=== PATIENT | female | born 2005 | race African-American/Black ===

== ENCOUNTER 2023-09-08 02:12 | Inpatient (IN) | payer OTHER, SELFPAY ==
[2023-09-07 18:54] VITALS: BP 168/90
[2023-09-07 19:29] VITALS: BMI 33.5
[2023-09-07 19:43] VITALS: BP 118/70
[2023-09-07 19:50] LABS: % Basophils 0.4 % (0-2); % Eosinophils 0.6 % (0-6); % Immature Granulocytes 0.3 % (0-0.5); % Lymphocytes 19.5 % (20.5-51.1); % Monocytes 7.8 % (1.7-9.3); % Neutrophils 71.4 % (42.2-75.2); Absolute Basophils 0.1 10^3/uL (0-0.2); Absolute Eosinophils 0.1 10^3/uL (0-0.7); Absolute Lymphocytes 2.3 10^3/uL (1.2-3.4); Absolute Monocytes 0.9 10^3/uL (0.1-0.6); Absolute Neutrophils 8.5 10^3/uL (1.4-6.5); Hematocrit 26.2 % (37.0-47.0); Hemoglobin 8.6 g/dL (12.0-16.0); Mean Corp Hgb Conc. 32.8 g/dL (33.0-37.0); Mean Corpuscular Hgb 25.5 pg (27.0-31.0); Mean Corpuscular Volume 77.7 fL (81.0-99.0); Mean Platelet Volume 10.2 fL (7.4-10.4); Nucleated Red Blood Cells % 0.2 %; Platelet Count 341 10^3/uL (130-400); Red Blood Cell Count 3.37 10^6/uL (4.20-5.40); White Blood Cell Count 11.9 10^3/uL (4.8-10.8)
[2023-09-07 19:52] LABS: Urine Albumin Trace (Neg - Trace); Urine Bilirubin Negative (Negative); Urine Character Slightly Cloudy (Clear); Urine Color Yellow; Urine Glucose Negative (Negative); Urine Ketone 3+ (Negative); Urine Leukocyte 2+ (Negative); Urine Nitrite Positive (Negative); Urine Occult Blood 4+ (Negative); Urine Urobilinogen 1+ (Neg - 1+); Urine pH 6.5 (5.0-9.0)
[2023-09-07 20:02] LABS: ALT (SGPT) 12 U/L (0-35); AST (SGOT) 18 U/L (14-36); Albumin 4.1 g/dl (3.5-5.0); Alkaline Phosphatase 103 U/L (38-126); Blood Urea Nitrogen 7 mg/dl (7-17); Calcium 9.5 mg/dl (8.4-10.2); Carbon Dioxide 21 mmol/L (22-30); Chloride 106 mmol/L (98-107); Estimated Creatinine Clearance > 125 ml/min; Glucose 84 mg/dl (70-99); Potassium 3.4 mmol/L (3.5-5.1); Sodium 134 mmol/L (135-145); Total Bilirubin 0.4 mg/dl (0.2-1.3); Total Protein 7.1 g/dl (6.3-8.2); eGFR > 60.00
[2023-09-07 20:05] LABS: Urine Amorphous Seen; Urine Bacteria Moderate (Negative); Urine White Cell >100 /HPF (0-5)
[2023-09-07 20:26] LABS: Iron 34 ug/dl (37-170)
[2023-09-07 20:36] LABS: Percent Saturation 7 % (20-50); Total Iron Binding Capacity 430 ug/dl (265-497)
[2023-09-07 20:37] VITALS: BP 109/65
[2023-09-07 21:03] LABS: Ferritin 8.2 ng/ml (6.24-137)
--- NOTE | 2023-09-07 21:14 | ED.GENMED ---
History of Present Illness
<Katie Cordoba NP - Last Filed: 09/10/23 16:43>
General
Chief Complaint: Urinary Symptoms
Source: patient
Exam Limitations: none
Time Seen by Provider: 09/07/23 19:05
Nursing documentation reviewed up to this point in time: agreed with
Travel History
Have you had any contact with someone who has COVID-19?: No
Do you have any symptoms of coronavirus? Fever > 100 degrees, chills, cough, shortness of breath, sore throat, loss of taste or smell, muscle aches, or headache?: No
History of Present Illness
History of Present Illness:
Patient to ED for eval of fever and chills. States she was evaluated at urgent care, told that she was anemic and sent to ED. Patient states that [facility] . States she was given 4 pills to take. SHe
developed heavy bleeding over the next few days. States she is still bleeding but is now light. No follow up. She also complained of UTI symptoms [facility]. They gave her an rx for macrobid which patient reports completiong. No
UA C&S performed. Still reports urinary symptoms. Brought to ED by boyfriend for eval.
Past History
<Katie Cordoba NP - Last Filed: 09/10/23 16:43>
Past History
ED Past Medical History: None
ED Past Surgical History: None and Other
Social History
Tobacco: Non-smoker
Alcohol: None
Drug: None
Review of Systems
<Katie Cordoba NP - Last Filed: 09/10/23 16:43>
Review of Systems
Allergies reviewed?: Yes
All Other Systems: ROS reviewed and negative except as documented in HPI and ROS
Constitutional: Reports no symptoms
EENT: Reports no symptoms
Respiratory: Reports no symptoms
Cardiac: Reports no symptoms
ABD/GI: Reports other (pelvic pain, low back pain)
: Reports frequency and urgency
Musculoskeletal: Reports no symptoms
Skin: Reports no symptoms
Neurological: Reports no symptoms
Psychiatric: Reports no symptoms
Phy Exam
<Katie Cordoba NP - Last Filed: 09/10/23 16:43>
General Physical Exam
General Presentation: well appearing and no apparent distress
General age: appears stated age
General Skin: warm and dry
General Habitus: normal
Cardiovascular Exam
Cardiovascular Exam: regular rate/rhythm
Pulmonary Exam
Pulmonary Exam: lungs clear and no respiratory distress
Gastrointestinal Exam
Gastrointestinal Exam: normal bowel sounds, non tender and soft
Musculoskeletal Exam
Musculoskeletal Exam: full ROM and neuro vasc intact
Skin Exam
Skin Exam: normal color, warm/dry and no rash
Psychiatric Exam
Psychiatric Exam: normal mood/affect
Course
<Katie Cordoba GAMING ASSOCIATE - Last Filed: 09/10/23 16:43>
Orders/Labs/Results
Orders:
Orders
09/07/23 19:41
Complete Blood Count/With Diff Urgent
Comprehensive Metabolic Panel Urgent
Ferritin Urgent
Comment: ADD ON
HCG, Beta Quantitative [Beta HCG Quantitative] Urgent
Is this a screen?: No
Iron Urgent
Comment: ADD ON
Total Iron Binding Urgent
Comment: ADD ON
09/07/23 19:42
Urinalysis Reflex To Culture Urgent
Date Specimen was Collected: 09/07/23
Time Specimen was Collected: 19:40
Urine Microscopic Reflex Cult Urgent
Urine Culture Urgent
CRISTY Source: U
Specimen Description:
Date Specimen was Collected: 09/07/23
Time Specimen was Collected: 19:40
09/07/23 19:54
Add On- LAB Urgent
Tests Added?: ferritin, iron, TIBC
09/07/23 20:34
US W Transvaginal Urgent
Reason For Exam: bleeding. S/p 2 weeks ago
09/07/23 23:06
0.9% Sodium Chloride 1000 ml [Nss] 1,000 ml IV BOLUS
09/07/23 23:07
Piperacillin/Tazo 3.375 Gram [Zosyn] 3.375 gram in 50 ml IV NOW
09/07/23 23:08
Vancomycin 1 Gram/200 ml [Vancocin] 1 gram in 200 ml IV NOW
09/07/23 23:09
IV Insert/Care/Rem.- Treatment PRN
09/07/23 23:31
Type+Screen Urgent
09/07/23 23:53
Blood Culture Urgent
CRISTY Source: Blood/Venous
Specimen Description:
09/07/23 23:54
Lactic Acid Urgent
09/07/23 23:55
Blood Culture Urgent
CRISTY Source: Blood/Venous
Specimen Description:
09/08/23 00:31
HYDROmorphone [Dilaudid] 0.25 mg IV PACU-Q5MPRN PRN
HYDROmorphone [Dilaudid] 0.5 mg IV PACU-Q5MPRN PRN
Meperidine [Demerol] 12.5 mg IV PACU-Q5MPRN PRN
Prochlorperazine [Compazine] 5 mg IV PACU-ONCEPRN PRN
09/08/23 00:32
Notify MD As Directed
Notify physician if: for SDS patients with known or suspected sleep obstructive sleep apnea, monitor in the
PACU.
Notify MD for any apneic/desaturation episodes
O2 Therapy [RESP] Urgent
Titrate/Wean O2 to maintain O2 sat greater than (%): 92
Special Instructions: -Provide supplemental oxygen to achieve O2 sat of 92% or greater.
-After 15 min, may wean O2 and discontinue if patient is able to maintain O2 sat of 92%
or greater during recovery period.
If patient is a discharge home, without oxygen therapy, notify anestheiologist if
unable to maintain O2 SAT of 92% or greater on room air for MD clearance.
09/08/23 00:43
Chlamydia/GC by PCR Urgent
CRISTY Source: Endo-Cervical
Specimen Description:
Source:: ENDOCERVICAL
Date Specimen was Collected: 09/08/23
Time Specimen was Collected: 00:37
Trichomonas - Wet Prep Urgent
CRISTY Source: Vagina
Specimen Description:
Date Specimen was Collected: 09/08/23
Time Specimen was Collected: 00:37
09/08/23 00:45
Normosol (Mult Electrolytes) [Normosol-R] 1,000 ml IV PER PROTOCOL
09/08/23 00:56
Fentanyl Citrate/Pf [Sublimaze] 100 mcg .ROUTE .STK-MED ONE
Midazolam HCl [Versed] 2 mg .ROUTE .STK-MED ONE
Ondansetron Injectable [Zofran] 4 mg .ROUTE .STK-MED ONE
Propofol [Diprivan] 20 ml .ROUTE .STK-MED
Rocuronium Aurora [Rocuronium] 50 mg .ROUTE .STK-MED ONE
09/08/23 01:00
Flush (0.9% Sodium Chloride) [Flush (Nss)] See Dose Instructions IV PER PROTOCOL
09/08/23 01:26
Admit/Transfer Patient As Directed
Co-Sign Provider:
Level of Care: Inpatient admission
Assign to:: Telemetry
Physician / Group: Rui
Diagnosis: Pyelonephritis, Retained POC
Reason for Telemetry: Arrhythmia
Date to Stop Telemetry: 09/11/23
Time to Stop Telemetry: 11:00
Reason for Hospitalization: Pyelonephritis, Retained POC
Expected length of stay greater than two midnights?: Yes
ELOS- Estimated Length of Stay in days: 3
I certify the patient meets the requirements for IP care: Yes
09/08/23 01:27
Code Status As Directed
Resuscitation Status: Full Code
09/08/23 01:32
Dexamethasone Sod Phosphate [Decadron] 20 mg .ROUTE .STK-MED ONE
Diphenhydramine [Benadryl] 50 mg .ROUTE .STK-MED ONE
Ketorolac [Toradol] 30 mg .ROUTE .STK-MED ONE
Sugammadex Sodium [Bridion] 200 mg .ROUTE .STK-MED ONE
09/08/23 01:47
Acetaminophen 1000MG/100Ml [Ofirmev] 1,000 mg in 100 ml .ROUTE .STK-MED
09/08/23 01:59
OR Pathology Routine
Clinical History: bleeding
Pre-Operative Diagnosis: bleeding
Post-Operative Diagnosis: bleeding
Operative Procedure: dilation and evacation
Surgeon: talha
Circulating Nurse: chas
Specimen Type: products of conception
09/08/23 02:15
Acetaminophen [Tylenol] 650 mg PO Q4HPRN PRN
HYDROmorphone [Dilaudid] 0.5 mg IV Q4HPRN PRN
Ketorolac [Toradol] 15 mg IV Q6HPRN PRN
Lactated Ringers [Lr] 1,000 ml IV 125 mls/hr
Prochlorperazine [Compazine] 5 mg IV Q6HPRN PRN
09/08/23 02:15
Echo 2D MMode Doppler [Echo 2D MMode Color/Doppler] Routine
Reason for Study: Murmur
MARKETING ASSISTANT RETAIL DIVISION CONSULT Routine
Consulting Provider: Yarelis Cannon
Was physician already notified: Yes
Reason for consult: Retained POC
Activity As Directed
Activity Level: Ambulate
Bladder Scan As Directed
Follow Bladder Retention/Intermittent Cath Algorithm?: Yes
PRN if no void in __ hours: 6
Frequency: Per Retention Algorithm
If Bladder Scan Result >: 400
then:: Straight cath
I/O [Intake/ Output] As Directed
Frequency: Per unit guidelines
Orthostatic Vital Signs As Directed
Orthostatic VS Frequency: BID
Pneumatic Compression Sleeves As Directed
Type: Knee high
Straight Cath As Directed
Frequency: Per Retention Algorithm
Additional Instructions: straight cath as needed per acute urinary retention algorithm for 24 hrs
Additional Instructions: for bladder scan greater than 400 mL
Vital Signs As Directed
Frequency: Per unit guidelines
Oxygen Therapy [O2 Therapy] [RESP] Routine
Titrate/Wean O2 to maintain O2 sat greater than (%): 94
DX Deep Vein Thrombosis Video Routine
09/08/23 06:00
Piperacillin/Tazo 3.375 Gram [Zosyn] 3.375 gram in 50 ml IV Q6H
09/08/23 06:57
Basic Metabolic Panel IN AM
Complete Blood Count/No Diff IN AM
Ferritin Routine
Total Iron Binding Routine
09/08/23 08:02
US Renal With Bladder IN AM
Comment:
Reason For Exam: UTI / Pyelo
09/09/23 Breakfast
Regular
At Your Request: Full Participation
09/11/23 11:00
DC Protocol for Telemetry ONCE
Abnormal Lab Results
09/07/23 09/07/23
19:41 19:42
WBC 11.9 H 10^3/uL
(4.8-10.8)
RBC 3.37 L 10^6/uL
(4.20-5.40)
Hgb 8.6 L g/dL
(12.0-16.0)
Hct 26.2 L %
(37.0-47.0)
MCV 77.7 L fL
(81.0-99.0)
MCH 25.5 L pg
(27.0-31.0)
MCHC 32.8 L g/dL
(33.0-37.0)
Absolute Neuts (auto) 8.5 H 10^3/uL
(1.4-6.5)
Absolute Monos (auto) 0.9 H 10^3/uL
(0.1-0.6)
Lymphocytes % 19.5 L %
(20.5-51.1)
Sodium 134 L mmol/L
(135-145)
Potassium 3.4 L mmol/L
(3.5-5.1)
Carbon Dioxide 21 L mmol/L
(22-30)
Iron 34 L ug/dl
(37-170)
% Saturation 7 L %
(20-50)
Urine Ketones 3+ A
(Negative)
Ur Occult Blood Reflex 4+ A
(Negative)
Urine Nitrite (Reflex) Positive A
(Negative)
Leukocyte Esterase Rfl 2+ A
(Negative)
Urine RBC 11-15 A /HPF
(0-2)
Urine WBC (Reflex) >100 A /HPF
(0-5)
Urine Bacteria (Reflex) Moderate A
(Negative)
09/07/23 19:41
09/07/23 19:41
Vital Signs
Initial and Last Documented VS:
Initial Vital Signs
Temp Pulse Resp BP Pulse Ox
99.1 F 126 22 168/90 100
09/07/23 18:54 09/07/23 18:54 09/07/23 18:54 09/07/23 18:54 09/07/23 18:54
Last Documented Vital Signs
Temp Pulse Resp BP Pulse Ox
98.0 F 93 17 106/63 99
09/10/23 11:10 09/10/23 11:10 09/10/23 11:10 09/10/23 11:10 09/10/23 11:10
<WILLIE Joe - Last Filed: 09/08/23 00:30>
Orders/Labs/Results
Orders:
Orders
09/07/23 19:41
Complete Blood Count/With Diff Urgent
Comprehensive Metabolic Panel Urgent
Ferritin Urgent
Comment: ADD ON
HCG, Beta Quantitative [Beta HCG Quantitative] Urgent
Is this a screen?: No
Iron Urgent
Comment: ADD ON
Total Iron Binding Urgent
Comment: ADD ON
09/07/23 19:42
Urinalysis Reflex To Culture Urgent
Date Specimen was Collected: 09/07/23
Time Specimen was Collected: 19:40
Urine Microscopic Reflex Cult Urgent
Urine Culture Urgent
CRISTY Source: U
Specimen Description:
Date Specimen was Collected: 09/07/23
Time Specimen was Collected: 19:40
09/07/23 19:54
Add On- LAB Urgent
Tests Added?: ferritin, iron, TIBC
09/07/23 20:34
US W Transvaginal Urgent
Reason For Exam: bleeding. S/p 2 weeks ago
09/07/23 23:06
0.9% Sodium Chloride 1000 ml [Nss] 1,000 ml IV BOLUS
09/07/23 23:07
Piperacillin/Tazo 3.375 Gram [Zosyn] 3.375 gram in 50 ml IV NOW
09/07/23 23:08
Vancomycin 1 Gram/200 ml [Vancocin] 1 gram in 200 ml IV NOW
09/07/23 23:09
IV Insert/Care/Rem.- Treatment PRN
09/07/23 23:31
Type+Screen Urgent
09/07/23 23:53
Blood Culture Urgent
CRISTY Source: Blood/Venous
Specimen Description:
09/07/23 23:54
Lactic Acid Urgent
09/07/23 23:55
Blood Culture Urgent
CRISTY Source: Blood/Venous
Specimen Description:
09/08/23 00:31
HYDROmorphone [Dilaudid] 0.25 mg IV PACU-Q5MPRN PRN
HYDROmorphone [Dilaudid] 0.5 mg IV PACU-Q5MPRN PRN
Meperidine [Demerol] 12.5 mg IV PACU-Q5MPRN PRN
Prochlorperazine [Compazine] 5 mg IV PACU-ONCEPRN PRN
09/08/23 00:32
Notify MD As Directed
Notify physician if: for SDS patients with known or suspected sleep obstructive sleep apnea, monitor in the
PACU.
Notify MD for any apneic/desaturation episodes
O2 Therapy [RESP] Urgent
Titrate/Wean O2 to maintain O2 sat greater than (%): 92
Special Instructions: -Provide supplemental oxygen to achieve O2 sat of 92% or greater.
-After 15 min, may wean O2 and discontinue if patient is able to maintain O2 sat of 92%
or greater during recovery period.
If patient is a discharge home, without oxygen therapy, notify anestheiologist if
unable to maintain O2 SAT of 92% or greater on room air for MD clearance.
09/08/23 00:43
Chlamydia/GC by PCR Urgent
CRISTY Source: Endo-Cervical
Specimen Description:
Source:: ENDOCERVICAL
Date Specimen was Collected: 09/08/23
Time Specimen was Collected: 00:37
Trichomonas - Wet Prep Urgent
CRISTY Source: Vagina
Specimen Description:
Date Specimen was Collected: 09/08/23
Time Specimen was Collected: 00:37
09/08/23 00:45
Normosol (Mult Electrolytes) [Normosol-R] 1,000 ml IV PER PROTOCOL
09/08/23 00:56
Fentanyl Citrate/Pf [Sublimaze] 100 mcg .ROUTE .STK-MED ONE
Midazolam HCl [Versed] 2 mg .ROUTE .STK-MED ONE
Ondansetron Injectable [Zofran] 4 mg .ROUTE .STK-MED ONE
Propofol [Diprivan] 20 ml .ROUTE .STK-MED
Rocuronium Aurora [Rocuronium] 50 mg .ROUTE .STK-MED ONE
09/08/23 01:00
Flush (0.9% Sodium Chloride) [Flush (Nss)] See Dose Instructions IV PER PROTOCOL
09/08/23 01:26
Admit/Transfer Patient As Directed
Co-Sign Provider:
Level of Care: Inpatient admission
Assign to:: Telemetry
Physician / Group: Rui
Diagnosis: Pyelonephritis, Retained POC
Reason for Telemetry: Arrhythmia
Date to Stop Telemetry: 09/11/23
Time to Stop Telemetry: 11:00
Reason for Hospitalization: Pyelonephritis, Retained POC
Expected length of stay greater than two midnights?: Yes
ELOS- Estimated Length of Stay in days: 3
I certify the patient meets the requirements for IP care: Yes
09/08/23 01:27
Code Status As Directed
Resuscitation Status: Full Code
09/08/23 01:32
Dexamethasone Sod Phosphate [Decadron] 20 mg .ROUTE .STK-MED ONE
Diphenhydramine [Benadryl] 50 mg .ROUTE .STK-MED ONE
Ketorolac [Toradol] 30 mg .ROUTE .STK-MED ONE
Sugammadex Sodium [Bridion] 200 mg .ROUTE .STK-MED ONE
09/08/23 01:47
Acetaminophen 1000MG/100Ml [Ofirmev] 1,000 mg in 100 ml .ROUTE .STK-MED
09/08/23 01:59
OR Pathology Routine
Clinical History: bleeding
Pre-Operative Diagnosis: bleeding
Post-Operative Diagnosis: bleeding
Operative Procedure: dilation and evacation
Surgeon: talha
Circulating Nurse: chas
Specimen Type: products of conception
09/08/23 02:15
Acetaminophen [Tylenol] 650 mg PO Q4HPRN PRN
HYDROmorphone [Dilaudid] 0.5 mg IV Q4HPRN PRN
Ketorolac [Toradol] 15 mg IV Q6HPRN PRN
Lactated Ringers [Lr] 1,000 ml IV 125 mls/hr
Prochlorperazine [Compazine] 5 mg IV Q6HPRN PRN
09/08/23 02:15
Echo 2D MMode Doppler [Echo 2D MMode Color/Doppler] Routine
Reason for Study: Murmur
MARKETING ASSISTANT RETAIL DIVISION CONSULT Routine
Consulting Provider: Yarelis Cannon
Was physician already notified: Yes
Reason for consult: Retained POC
Activity As Directed
Activity Level: Ambulate
Bladder Scan As Directed
Follow Bladder Retention/Intermittent Cath Algorithm?: Yes
PRN if no void in __ hours: 6
Frequency: Per Retention Algorithm
If Bladder Scan Result >: 400
then:: Straight cath
I/O [Intake/ Output] As Directed
Frequency: Per unit guidelines
Orthostatic Vital Signs As Directed
Orthostatic VS Frequency: BID
Pneumatic Compression Sleeves As Directed
Type: Knee high
Straight Cath As Directed
Frequency: Per Retention Algorithm
Additional Instructions: straight cath as needed per acute urinary retention algorithm for 24 hrs
Additional Instructions: for bladder scan greater than 400 mL
Vital Signs As Directed
Frequency: Per unit guidelines
Oxygen Therapy [O2 Therapy] [RESP] Routine
Titrate/Wean O2 to maintain O2 sat greater than (%): 94
DX Deep Vein Thrombosis Video Routine
09/08/23 06:00
Piperacillin/Tazo 3.375 Gram [Zosyn] 3.375 gram in 50 ml IV Q6H
09/08/23 06:57
Basic Metabolic Panel IN AM
Complete Blood Count/No Diff IN AM
Ferritin Routine
Total Iron Binding Routine
09/08/23 08:02
US Renal With Bladder IN AM
Comment:
Reason For Exam: UTI / Pyelo
09/09/23 Breakfast
Regular
At Your Request: Full Participation
09/11/23 11:00
DC Protocol for Telemetry ONCE
Abnormal Lab Results
09/07/23 09/07/23
19:41 19:42
WBC 11.9 H 10^3/uL
(4.8-10.8)
RBC 3.37 L 10^6/uL
(4.20-5.40)
Hgb 8.6 L g/dL
(12.0-16.0)
Hct 26.2 L %
(37.0-47.0)
MCV 77.7 L fL
(81.0-99.0)
MCH 25.5 L pg
(27.0-31.0)
MCHC 32.8 L g/dL
(33.0-37.0)
Absolute Neuts (auto) 8.5 H 10^3/uL
(1.4-6.5)
Absolute Monos (auto) 0.9 H 10^3/uL
(0.1-0.6)
Lymphocytes % 19.5 L %
(20.5-51.1)
Sodium 134 L mmol/L
(135-145)
Potassium 3.4 L mmol/L
(3.5-5.1)
Carbon Dioxide 21 L mmol/L
(22-30)
Iron 34 L ug/dl
(37-170)
% Saturation 7 L %
(20-50)
Urine Ketones 3+ A
(Negative)
Ur Occult Blood Reflex 4+ A
(Negative)
Urine Nitrite (Reflex) Positive A
(Negative)
Leukocyte Esterase Rfl 2+ A
(Negative)
Urine RBC 11-15 A /HPF
(0-2)
Urine WBC (Reflex) >100 A /HPF
(0-5)
Urine Bacteria (Reflex) Moderate A
(Negative)
09/07/23 19:41
09/07/23 19:41
Vital Signs
Initial and Last Documented VS:
Initial Vital Signs
Temp Pulse Resp BP Pulse Ox
99.1 F 126 22 168/90 100
09/07/23 18:54 09/07/23 18:54 09/07/23 18:54 09/07/23 18:54 09/07/23 18:54
Last Documented Vital Signs
Temp Pulse Resp BP Pulse Ox
98.0 F 93 17 106/63 99
09/10/23 11:10 09/10/23 11:10 09/10/23 11:10 09/10/23 11:10 09/10/23 11:10
<WILLIE Joe - Last Filed: 09/08/23 00:30>
MDM/Problems Addressed
MDM/Problems Addressed:
Received patient in signout from Juan Alberto Cordoba NP.
Patient is awake alert no acute distress. As documented she reports she was 7 weeks August 22 and went to [facility] for medical . She reports that she had a lot of heavy bleeding after taking that medication with clots.
Since then she has had a moderate amount of bleeding consistent to her. Today however she developed urinary frequency urgency burning with urination chills and had a fever of 102.2 with back pain. She went to urgent care was sent here in the ER.
Patient's temp on arrival is 99.1. Presently patient's temp is 99.5 taken by myself. She is mildly tachycardic in the 1 teens. Her white count is 11.9. Hemoglobin is 8.6.
Her hCG is 2344.30 urine appears infected with greater than 100 white blood cells. Ultrasound shows heterogeneous hypervascular material in the endometrial canal concerning for retained proximal of conception
2308: Case reviewed with SALES ORDER ADMINISTRATOR on-call Dr. Cannon. Despite UTI symptoms with complaints of fevers of 102.2 status post she will take to OR for D&E. Patient was ordered a liter of fluids as discussed with MARKETING ASSISTANT RETAIL DIVISION Kelley and [employer] and type
and screen ordered.
Pt [address] will take to OR however pt to be adm to medicine for possible pyelo. GC cx sent w/ trich. BC x2 sent
<WILLIE Joe - Last Filed: 09/08/23 00:30>
*Critical Care Note
Total Time (30-74mins, 75-104mins- exclusive of procedures): Not Applicable
<Katie Cordoba NP - Last Filed: 09/10/23 16:43>
Update Note
Update Note:
Patient sent to ED by for fever, UTI symptoms, vaginal bleeding. SHe was treated at 08/22 for medical . States she has had vaginal bleeding since. Anemia ntoed on CBC. [id number] Pelvic US pending. Treated for UTI by at same
visit. SHe completed a course of macrobid without improvement. UA obtained tonight, confirming UTI. WIll begin antibiotics in dept. Report given to Brent Capone who will assume care of this patient. Disposition dependent on US result.
ED Attending Note
<Katie Cordoba NP - Last Filed: 09/10/23 16:43>
-
Portions of this chart may have been created with voice recognition software.� Occasional wrong word or��sound alike� substitutions may have occurred due to the inherent limitations of voice recognition software.
Discharge Plan
Departure
Patient Disposition: Admit
Date of Disposition: 09/07/23
Time of Disposition: 23:10
Admit to: Med/Surg
Admit to doctor: Rui
Presentation/result/management discussed w/ accepting MD/DO: Hospitalist
Patient with high blood pressure during this ER visit?: Yes
Condition: Fair
Covid-19: Not Applicable
Discharge Problem:
Fever, Dysuria
Interventions
Interventions:
*Risk Screen - Suicide Last Done: 09/08/23 03:19
*General Assessment Last Done: 09/07/23 19:29
*Neglect/Abuse Screening Last Done: 09/07/23 18:54
ED- Fall Risk Assessment Last Done: 09/07/23 21:00
*ED COVID-19 Vaccine History Last Done: 09/08/23 03:19
*Nursing Disposition Last Done: 09/08/23 01:00
ED-Female Genitourinary Assessment Last Done: 09/07/23 21:00
ED- Neurological Assessment Last Done: 09/07/23 21:00
ED-Skin Assessment Last Done: 09/07/23 21:00
Discharge Date and Time
Discharge Date/Time: 09/08/23 01:32
[2023-09-07] MEDS: NSS 1000 IV (23:37)
[2023-09-07] MEDS: ZOSYN 50 IV (23:38)
[2023-09-07 23:58] VITALS: BP 132/64
[2023-09-08] VITALS (15 sets, daily range): BP systolic 96–132; BP diastolic 38–73; PULSE 113–122; BMI 33.0
[2023-09-08] MEDS: VANCOCIN 200 IV (00:12)
--- NOTE | 2023-09-08 00:46 | CON.MD ---
Consultation - Medical
-
Consult dictated in full.
18 yo female has hx of elective medical termination of through [facility] on 08/22/23 at approx 7 wks . She started bleeding 4 hours after dosing and bled heavily for severaldays, now tapered off. Had UTIi sx on 08/22
and was treated with macrobid x 10 days completed approx 08/31/23 without any improvement in her symptoms. Had Temp 100.9 at home today and went to Urgent care for UTI sx. Had Temp 102 at Urgent Care and sent to Hospital. Evaluation revealed BHCG 2344
and US with thickened endometrium 14mm with heterogeneous material in endometrial canal suggesting retained POC.
ROS: + fever, + chills, no CP, No SOB, no dizziness or lightheadedness, +slight odor noted by pt with vaginal bleeding
PMH: neg
PSH: excision ectopc axillary breast tissue left
ALL: Zofran0'mild hives'
OBHx: 9 months ago, recent 7 wk termination
Famhx: DM, HTN, heart disease
Sochx: neg tob, etoh, drug use, vaping
PE: VSS T99.5
Pleasant female, no acute distress
COr: regular rate
Pulm: clear b/l
Abd: soft, ND, mild tenderness with deep palpation lower pelvis
Mild CVAT on right
SPec exam: no abnormal vaginal discharge. Small amount of blood noted at cervical os. No active bleeding, No cervical motion tenderness. Uterus normal size, slightly tender to palpation.No adnexal tenderness. No foul odor noted.
Ext: no calf pain
WBC 11.9 H/H: 8.6/26.2 plt 341
HCG 2344
Urine +2 leuks +nitrites, >100 WBCs, moderate bacteria
Assessment:
1. S/P elective termination of with retained products of conception.
2. Fever and leukocytosis, tachycardia-raises concern for septic vs pyelonephritis
3. UTI, possible pyelonephritis
4. anemia-liekly related to recent blood loss from termiantion
Plan: Admit to hospitalist service due to other medical conditions. Reviewed case with Dr. Fabian.
Broad spectrum antibiotics: Zosyn and vanco
GC/CT cultures collected,trichomonas sawb collected.
urine culture and blood cultures collected.
Recommend D&E to evacuate retained products. Reviewed rationale for procedure, risks and complications and informed consent obtained. T&S and blood consent obtained.
iron for anemia postprocedure
OR and RN Assembler M[employer] Frames aware.
[2023-09-08 01:00] LABS: Lactic Acid 0.7 mmol/L (0.7-2.0)
--- NOTE | 2023-09-08 01:34 | HPS.HSE ---
Family Physician
-
Family Physician: Sondra Navas,
Chief Complaint
-
Dysuria, Fever
History of Present Illness
Patient is a 18y F with no significant PMH who presents to ED complaining of fever and dysuria. Patient states that she started with dysuria and urinary frequency on 08/21. She was seen at [facility] on 08/22 and was prescribed Macrobid x
10 days which she has since completed. Patient states that her urinary symptoms did not improve. In addition, she took mifepristone and misoprostol for induction of .
Patient continued to have urinary symptoms and then developed back pain and today had a fever at home to 102. She initially presented to Urgent Care and was then referred to the ED for further evaluation.
Patient had US done in the ED showing retained POC. OB was consulted and patient was taken to the OR for D&E.
Medical History
Past Medical History
Past Medical History: Reports None
Past Surgical History: Reports Other
Additional Past Surgical History:
Left Axillary Breast Tissue Excision (Jun 2023)
Social History
Tobacco: Non-smoker
Alcohol: None
Drug: None
Family History
Family History: Not pertinent
Allergies / Home Medications
Allergies reflects when Allergies were last updated in [facility].
Home Medications with original date entered in [facility]
Allergy/Medication List:
Allergies
Allergy/AdvReac Type Severity Reaction Status Date / Time
ondansetron [From Zofran] Allergy Hives Verified 09/07/23 18:58
Home Medications
No Meds [No Current Medications] 09/08/23
Review of Systems
-
History Source: Patient
A 12 point ROS was completed and negative except as noted: Yes
Constitutional: Reports Fever, Fatigue and Chills
EENT: Denies Sore Throat
Respiratory: Denies Cough or Trouble Breathing
Cardiac: Denies Chest Pain or Palpitations
Abdomen/GI: Reports Abdominal Pain; Denies Nausea, Vomiting or Diarrhea
: Reports Dysuria, Frequency, Flank Pain and Other (Pelvic cramps)
Musculoskeletal: Denies Joint Pain
Neurological: Denies Dizzy or Headache
Psych: Denies Depression or Anxiety
Physical Exam
Vital Signs
Vital Signs
Temp Pulse Resp BP Pulse Ox
99.5 F 119 20 132/64 98
09/07/23 23:09 09/08/23 01:00 09/08/23 01:00 09/08/23 00:23 09/08/23 00:23
Physical Exam
General: Other (18y F in mild distress due to pain.)
HEENT: Moist mucous membranes and PERRLA
Respiratory: Clear; No Wheezes, Rales or Rhonchi
Cardiac: S1/S2, Regular Rhythm and Murmur (II/ SOCO)
GI: Soft, Non Distended, Normal Bowel Sounds and Other (Pos abdominal tenderness - primarily lower abdomen and L side.)
Genito-urinary: Other (Mild L CVAT)
Musculoskeletal: No Clubbing, No Cyanosis and No Edema
Neuro: AO x 3
Laboratory Results
-
09/07/23 19:41
09/07/23 19:41
Laboratory Results
Lactic Acid 0.7 mmol/L (0.7-2.0) 09/08/23 00:08
Total Bilirubin 0.4 mg/dl (0.2-1.3) 09/07/23 19:41
AST 18 U/L (14-36) 09/07/23 19:41
ALT 12 U/L (0-35) 09/07/23 19:41
Alkaline Phosphatase 103 U/L (38-126) 09/07/23 19:41
Impression/Plan
-
A/P: Patient is a 18y F with no significant PMH who presented to ED complaining of fever, back pain and urinary symptoms.
Pyelonephritis
- Admit for further evaluation and treatment.
- Clinical pyelo with positive UTI, flank pain and fevers.
- IV abx with Zosyn after patient failed outpatient Macrobid x 10 days.
- Follow for clinical improvement.
- Supportive care with IVFs, antipyretics and pain control.
- Check renal US in the AM.
- Follow up culture data and adjust treatment as needed.
Induced
Retained Products of Conception
- s/p medically induced on 08/22
- s/p D&E this evening - contents did not appear overtly infected.
- Appreciate OB evaluation / intervention.
- Post-op care per OB.
Anemia
- Unclear etiology. Potentially related to recent / .
- Check iron studies.
- Follow H&H and transfuse or administer IV iron if needed.
Murmur
- Patient with systolic ejection murmur on exam. She was previously unaware of this.
- Check Echo.
DVT Prophylaxis: SCDs
Code Status: Full
--- NOTE | 2023-09-08 02:29 | W.IMMPOSTOP ---
Surgical Immed Post Op Note
-
Primary Surgeon: Yarelis Cannon DO
Assisting Surgeon: none
Pre-op Diagnosis: Retained products of conception s/p elective medical termination of
Post-op Diagnosis: same
Procedure Performed: Dilation and evacuation with suction
Anesthesia Type: general Dr. Mix
Specimen / Cultures: products of conception
Estimated Blood Loss: 15 ml
Complications: none
Operative Findings: Uterus sounded to 9 cm, products of conception visualized upon suction.
Antibiotic given in ED: vancomycin IV and Zosyn IV
Counts correct times 2.
Blood type AB pos
Counts correct times 2.
[2023-09-08] MEDS: LR 1000 IV ×3 (02:31→21:32)
--- NOTE | 2023-09-08 03:00 | PTCARENOTE ---
Pt arrived to unit at 0300 from PACU. Pt drowsy upon arrival, but arousable to verbal stimuli. Vital signs stable. Pt arrived with scant amount of blood on pad. Care plan reviewed with pt and call pagan within reach.
[2023-09-08] MEDS: ZOSYN 50 IV ×4 (05:57→23:59)
[2023-09-08 08:11] LABS: Hematocrit 26.8 % (37.0-47.0); Hemoglobin 8.6 g/dL (12.0-16.0); Mean Corp Hgb Conc. 32.1 g/dL (33.0-37.0); Mean Corpuscular Hgb 25.4 pg (27.0-31.0); Mean Corpuscular Volume 79.1 fL (81.0-99.0); Mean Platelet Volume 10.7 fL (7.4-10.4); Platelet Count 319 10^3/uL (130-400); Red Blood Cell Count 3.39 10^6/uL (4.20-5.40); White Blood Cell Count 12.3 10^3/uL (4.8-10.8)
[2023-09-08 08:55] LABS: Blood Urea Nitrogen 3 mg/dl (7-17); Calcium 8.6 mg/dl (8.4-10.2); Carbon Dioxide 19 mmol/L (22-30); Chloride 107 mmol/L (98-107); Estimated Creatinine Clearance > 125 ml/min; Glucose 110 mg/dl (70-99); Sodium 133 mmol/L (135-145); eGFR > 60.00
[2023-09-08 09:06] LABS: Total Iron Binding Capacity 383 ug/dl (265-497)
--- NOTE | 2023-09-08 09:14 | W.PN.HOSP.TC ---
Today's Communication/Plan
-
Continue current management.
Assessment / Plan
Assessment / Plan
Physical exam:
General: Well Developed, Well Nourished and No Apparent Distress
HEENT: Normocephalic, Atraumatic and Moist Mucous Membranes
Respiratory: Clear to Auscultation; Negative Wheezes, Rales or Rhonchi
Cardiac: Regular Rhythm and S1/S2
GI: Soft, Nontender and Nondistended
Musculoskeletal: No Clubbing, No Cyanosis and No Edema
Neuro: Awake, Alert and Oriented
Psych: Calm
A/P:
Pyelonephritis
�- Admit for further evaluation and treatment.
�- Clinical pyelo with positive UTI, flank pain and fevers.
�- IV abx with Zosyn after patient failed outpatient Macrobid x 10 days.
�- Follow for clinical improvement.
�- Supportive care with IVFs, antipyretics and pain control.
�- Check renal US in the AM.
�- Follow up culture data and adjust treatment as needed.
Induced
Retained Products of Conception
�- s/p medically induced on 08/22
�- s/p D&E this evening - contents did not appear overtly infected.
�- Appreciate OB evaluation / intervention.
�- Post-op care per OB.
�
Anemia
�- Unclear etiology.� Potentially related to recent / . Hb 8.6 today same as yesterday
�- Check iron studies.
�- Follow H&H and transfuse or administer IV iron if needed.
Murmur
�- Patient with systolic ejection murmur on exam.� She was previously unaware of this.
�- Check Echo.
DVT Prophylaxis:� SCDs
Code Status:� Full
Anticipated Discharge: 24 - 48 hours
Subjective/Interval History
-
Date of Service: September 08, 2023
No new complaints.
Objective Data
-
Labs:
Laboratory Results
09/08/23
06:57
WBC 12.3 H
Hgb 8.6 L
Hct 26.8 L
Plt Count 319
Sodium 133 L
Potassium 4.0
Chloride 107
Carbon Dioxide 19 L
BUN 3 L
Creatinine 0.6
Glucose 110 H
Calcium 8.6
Vital Signs:
Vital Signs
Temp Pulse Resp BP Pulse Ox
98.2 F 88 20 109/54 98
09/08/23 07:12 09/08/23 07:12 09/08/23 07:12 09/08/23 07:12 09/08/23 07:12
I&O
09/07/23 09/08/23 09/09/23
06:59 06:59 06:59
Intake Total 640 / 640
Balance 640 / 640
[2023-09-08 09:29] LABS: Ferritin 10.5 ng/ml (6.24-137)
--- NOTE | 2023-09-08 13:26 | CM ---
Patient seen bedside.
IA completed.
Patient lives with mom and brother.]
3 story home.
Independent prior to admission.
Drives and works.
No d/c needs anticipated.
Plan:home no needs.
--- NOTE | 2023-09-08 13:55 | W.PN.OBG.DWH ---
Today's Communication / Plan
-
-will start feosol for anemia.
-continue on Zosyn for suspected pyelo
-I will want her to be afebrile for 48hrs and clinically improving for discharge.
-regular diet as tolerated
-OOB as tolerated
Assessment/Plan
-
18yo HD#2, POD#0 s/p D&E for retained POC, possible endometritis vs suspected Pyelonephritis
-patient states bleeding has significantly improved since the procedure. Hgb is stable at 8.6. will start feosol for anemia.
-she continues to have dysuria. Currently on Zosyn for suspected pyelo
-patient without fever since being at Urgent care on 09/06. Advised typically I will want her to be afebrile for 48hrs and clinically improving for discharge.
-regular diet as tolerated
-OOB as tolerated
Subjective Data
-
feels better, bleeding is much improved. Still has burning when she voids and some lower back pain. No nv/f/c. tolerating PO intake.
Objective Data
-
Laboratory Results
09/08/23 06:57
09/08/23 06:57
Vital Signs
Temp Pulse Resp BP Pulse Ox
98.2 F 88 20 109/54 98
09/08/23 07:12 09/08/23 07:12 09/08/23 07:12 09/08/23 07:12 09/08/23 07:12
Last Temp 102.2 on 09/06 at Urgent Care. Tmax since admission was 100.3
Gen: nad aaox3
Abd: soft, nt, nd, no r/g
BACK: no CVA ttp
Ext: no LE ttp/edema
--- NOTE | 2023-09-08 16:49 | PTCARENOTE ---
Patient drowsy today, appetite 100 at meals. No c/o abdominal pain . Small amount of blood on peripad. Able to make her needs known. Call pagan in reach.
[2023-09-08] MEDS: LR IV (17:23)
[2023-09-08] MEDS: FEOSOL 325 MG PO (20:20)
[2023-09-09] VITALS (9 sets, daily range): BP systolic 96–122; BP diastolic 48–74; PULSE 77–110
[2023-09-09] MEDS: ZOSYN 50 IV ×4 (05:09→23:33)
[2023-09-09] MEDS: LR 1000 IV (05:09)
--- NOTE | 2023-09-09 08:14 | W.PN.HOSP.TC ---
Today's Communication/Plan
-
Continue IV antibiotics.
Assessment / Plan
Assessment / Plan
Physical exam:
General: Well Developed, Well Nourished and No Apparent Distress
HEENT: Normocephalic, Atraumatic and Moist Mucous Membranes
Respiratory: Clear to Auscultation; Negative Wheezes, Rales or Rhonchi
Cardiac: Regular Rhythm and S1/S2
GI: Soft, Nontender and Nondistended
Musculoskeletal: No Clubbing, No Cyanosis and No Edema
Neuro: Awake, Alert and Oriented
Psych: Calm
A/P:
Pyelonephritis versus endometritis:
-Continue IV Zosyn
-Stop IV fluids
-Appreciated VOYAGE MANAGEMENT SYSTEM OPERATOR evaluation
-Blood cultures and urine cultures no growth
-Reviewed renal ultrasound
Induced
Retained Products of Conception
�- s/p medically induced on 08/22
�- s/p D&E on 09/07- contents did not appear overtly infected.
�- Appreciate OB evaluation / intervention.
�- Post-op care per OB.
�
Anemia
-Component of acute blood loss anemia and iron deficiency
�-Started on iron
�-Continue to monitor
Suspected murmur
�-Echocardiogram unremarkable
DVT Prophylaxis:� SCDs
Code Status:� Full
Anticipated Discharge: 24 - 48 hours
Subjective/Interval History
-
Date of Service: September 09, 2023
Patient feels better overall, no abdominal pain. Afebrile today
Objective Data
-
Labs:
Laboratory Results
09/09/23
07:26
WBC Pending
Hgb Pending
Hct Pending
Plt Count Pending
Sodium Pending
Potassium Pending
Chloride Pending
Carbon Dioxide Pending
BUN Pending
Creatinine Pending
Glucose Pending
Calcium Pending
Vital Signs:
Vital Signs
Temp Pulse Resp BP Pulse Ox
97.9 F 76 16 115/62 98
09/09/23 03:02 09/09/23 03:02 09/09/23 03:02 09/09/23 03:02 09/09/23 03:02
I&O
09/08/23 09/09/23 09/10/23
06:59 06:59 06:59
Intake Total 640 / 640 3940 / 3940
Balance 640 / 640 3940 / 3940
Review of Systems
-
All other systems: Reviewed and negative
[2023-09-09 08:29] LABS: % Basophils 0.1 % (0-2); % Immature Granulocytes 0.7 % (0-0.5); % Lymphocytes 14.2 % (20.5-51.1); % Monocytes 4.9 % (1.7-9.3); % Neutrophils 80.1 % (42.2-75.2); Absolute Immature Granulocytes 0.1 10^3/uL (0-0.05); Absolute Lymphocytes 2.1 10^3/uL (1.2-3.4); Absolute Monocytes 0.7 10^3/uL (0.1-0.6); Absolute Neutrophils 11.9 10^3/uL (1.4-6.5); Hematocrit 25.1 % (37.0-47.0); Hemoglobin 8.1 g/dL (12.0-16.0); Mean Corp Hgb Conc. 32.3 g/dL (33.0-37.0); Mean Corpuscular Hgb 25.6 pg (27.0-31.0); Mean Corpuscular Volume 79.4 fL (81.0-99.0); Mean Platelet Volume 10.8 fL (7.4-10.4); Nucleated Red Blood Cells % 0.2 %; Platelet Count 326 10^3/uL (130-400); Red Blood Cell Count 3.16 10^6/uL (4.20-5.40); Red Cell Dist. Width 13.2 % (11.5-14.5); White Blood Cell Count 14.8 10^3/uL (4.8-10.8)
[2023-09-09 09:00] LABS: Blood Urea Nitrogen 4 mg/dl (7-17); Calcium 9.3 mg/dl (8.4-10.2); Carbon Dioxide 21 mmol/L (22-30); Chloride 107 mmol/L (98-107); Estimated Creatinine Clearance > 125 ml/min; Glucose 122 mg/dl (70-99); Potassium 4.1 mmol/L (3.5-5.1); Sodium 136 mmol/L (135-145); eGFR > 60.00
[2023-09-09 09:15] LABS: Beta HCG Quantitative 437.35 mIU/ml
[2023-09-09] MEDS: FEOSOL 325 MG PO ×2 (09:16→19:44)
--- NOTE | 2023-09-09 11:53 | W.PN.GYN ---
Today's Communication / Plan
-
-Continue antibiotics, per primary team-- tailor based on UCx sensitivities (pending)
-Stable from a POLYSOMNOGRAPHY TECHNOLOGIST perspective. D/c home per primary team once she is transitioned to PO antibiotics. Pt can call [facility] to arrange follow-up in about 2wks, sooner if needed. I reviewed POLYSOMNOGRAPHY TECHNOLOGIST return precautions with the patient.
-Pt should continue her previously prescribed OCPs
Physician Note
-
Pt feeling much better this morning. Denies f/c, pain in the back or pelvis. Dysuria resolved. Denies n/v or difficulty tolerating PO. Ambulating. Vaginal bleeding is scant spotting only. No abnormal or foul-smelling vaginal discharge. Denies CP,
dizziness, palpitations, SOB or leg pain.
VSS- afebrile (last fever on 09/06 at urgent care)
Gen: NAD, WD/WN
Abd: soft, NTTP, ND
Back: no CVAT
Extr: no calf TTP
Labs reviewed: WBC this morning 14.8 (trended up <-12.3 <11.9)
H/H 8.6/26.2, PLTs 326
Creat 0.5
HCG quant 437 (down from 2,344 on admission)
Lactate 0.7 on admission
GC/CT neg/neg
Trich neg
Blood cultures neg x2 (PRELIM)
UCx +E. Coli (sensitivities pending)
Surgical path PENDING
IMAGING/STUDIES:
Renal US 09/07: normal
Echo 09/07: normal
A/P 18yo HD#3, POD#1 s/p D&E for retained POC s/p elective medical termination of , admitted with Pyelonephritis and possible septic .
Patient afebrile now for 48hrs on IV Zosyn and clinically improved. WBC has uptrended however.
Asymptomatic anemia. Scant vaginal bleeding.
-Continue feosol for anemia
-Continue antibiotics, per primary team-- tailor based on UCx sensitivities (pending) and transition to PO antibiotics anytime now that she has been afebrile and sx have improved
-Stable from a POLYSOMNOGRAPHY TECHNOLOGIST perspective. D/c home per primary team once she is transitioned to PO antibiotics. Pt can call [facility] to arrange follow-up in about 2wks, sooner if needed. I reviewed POLYSOMNOGRAPHY TECHNOLOGIST return precautions with the patient.
-Pt should continue her previously prescribed OCPs for control
Artem Jean Baptiste, DO
[2023-09-10 03:56] VITALS: BP 103/58
[2023-09-10] MEDS: ZOSYN 50 IV (05:22)
[2023-09-10 07:30] VITALS: BP 108/60
[2023-09-10 08:19] LABS: % Basophils 0.6 % (0-2); % Eosinophils 0.3 % (0-6); % Immature Granulocytes 0.6 % (0-0.5); % Lymphocytes 41.2 % (20.5-51.1); % Monocytes 5.7 % (1.7-9.3); % Neutrophils 51.6 % (42.2-75.2); Absolute Basophils 0.1 10^3/uL (0-0.2); Absolute Immature Granulocytes 0.1 10^3/uL (0-0.05); Absolute Lymphocytes 4.1 10^3/uL (1.2-3.4); Absolute Monocytes 0.6 10^3/uL (0.1-0.6); Absolute Neutrophils 5.2 10^3/uL (1.4-6.5); Hematocrit 26.2 % (37.0-47.0); Hemoglobin 8.6 g/dL (12.0-16.0); Mean Corp Hgb Conc. 32.8 g/dL (33.0-37.0); Mean Corpuscular Hgb 25.4 pg (27.0-31.0); Mean Corpuscular Volume 77.5 fL (81.0-99.0); Mean Platelet Volume 10.6 fL (7.4-10.4); Nucleated Red Blood Cells % 0.3 %; Platelet Count 328 10^3/uL (130-400); Red Blood Cell Count 3.38 10^6/uL (4.20-5.40); Red Cell Dist. Width 13.2 % (11.5-14.5)
[2023-09-10] MEDS: FEOSOL 325 MG PO (08:38)
--- NOTE | 2023-09-10 09:02 | W.PN.HOSP.TC ---
Today's Communication/Plan
-
Discharge planning today.
Assessment / Plan
Assessment / Plan
Physical exam:
General: Well Developed, Well Nourished and No Apparent Distress
HEENT: Normocephalic, Atraumatic and Moist Mucous Membranes
Respiratory: Clear to Auscultation; Negative Wheezes, Rales or Rhonchi
Cardiac: Regular Rhythm and S1/S2
GI: Soft, Nontender and Nondistended
Musculoskeletal: No Clubbing, No Cyanosis and No Edema
Neuro: Awake, Alert and Oriented
Psych: Calm
A/P:
Pyelonephritis and septic /endometritis:
-Continue IV Zosyn and changed to oral Augmentin today
-Off IV fluids
-Appreciated EMPLOYMENT TRAINER evaluation
-Blood cultures no growth and urine cultures with E. coli
-Reviewed renal ultrasound
Induced
Retained Products of Conception
�- s/p medically induced on 08/22
�- s/p D&E on 09/07- contents did not appear overtly infected.
�- Appreciate OB evaluation / intervention.
�- Post-op care per OB.
�
Anemia
-Component of acute blood loss anemia and iron deficiency
�-Started on iron
�-Continue to monitor
Suspected murmur
�-Echocardiogram unremarkable
DVT Prophylaxis:� SCDs
Code Status:� Full
Anticipated Discharge: Today
Subjective/Interval History
-
Date of Service: September 10, 2023
Patient no chest pain or shortness of breath or abdominal pain. Afebrile
Objective Data
-
Labs:
Laboratory Results
09/10/23
08:03
WBC 10.0
Hgb 8.6 L
Hct 26.2 L
Plt Count 328
Sodium Pending
Potassium Pending
Chloride Pending
Carbon Dioxide Pending
BUN Pending
Creatinine Pending
Glucose Pending
Calcium Pending
Vital Signs:
Vital Signs
Temp Pulse Resp BP Pulse Ox
98.3 F 85 17 108/60 100
09/10/23 07:30 09/10/23 07:30 09/10/23 07:30 09/10/23 07:30 09/10/23 07:30
I&O
09/09/23 09/10/23 09/11/23
06:59 06:59 06:59
Intake Total 3940 / 3940 1600 / 1600
Balance 3940 / 3940 1600 / 1600
[2023-09-10 09:41] LABS: Blood Urea Nitrogen 8 mg/dl (7-17); Calcium 8.7 mg/dl (8.4-10.2); Carbon Dioxide 20 mmol/L (22-30); Chloride 105 mmol/L (98-107); Estimated Creatinine Clearance > 125 ml/min; Glucose 83 mg/dl (70-99); Potassium 3.6 mmol/L (3.5-5.1); Sodium 135 mmol/L (135-145); eGFR > 60.00
[2023-09-10] MEDS: AUGMENTIN 875 MG/125 MG 1 TABLET PO (10:01)
--- NOTE | 2023-09-10 10:58 | W.DCSUMMARY ---
Discharge Summary
Discharge Data
Date of Admission: 09/08/23
Date of Discharge: 09/10/23
-
Pending Results: No
Hospital Course
Patient 18 years old female, G2, P1 presented to the hospital with abdominal discomfort fever and vaginal bleeding. Patient had medical termination of her using oral mifepristone and misoprostol that she took on 08/22 and she was treated
with Macrobid for possible urinary tract infection and she completed on 08/30 and although she did feel better she continued to have symptoms and started to have fevers. Patient was seen by ESCALATION ENGINEER who performed ENT for retained products of conception.
She also had cultures that grew E. coli in the urine but no growth on blood cultures. She was treated with IV fluids and broad-spectrum IV antibiotics of IV Zosyn. She also was noted to be anemic but hemoglobin remained stable and she was started
on iron pills. Her fever subsided and she remained hemodynamically stable. She was instructed to follow-up with ESCALATION ENGINEER and PCP as outpatient. She is being switched to oral antibiotic and she will be discharged home in stable condition today.
Discharge duration: 34 minutes
Discharge Plan
-
Patient Disposition: Home (Routine Discharge)
Discharge Diagnosis/Procedures: Pyelonephritis. Possible septic with endometritis. Status post elective medical termination of .
Condition: Fair
Diet: Low Cholesterol
Activity: As tolerated
Driving Restrictions: As prior to admission
Blood Work: Please PCP to order CBC, BMP within 1 week
Stand Alone Forms: Return to Work
Referrals:
Yarelis Cannon DO [Active] - in three to four weeks
Sondra Navas DO [Family Provider] - in less than 1 week
Prescriptions:
New
acetaminophen 325 mg Tablet
650 mg PO Q4HPRN PRN (Reason: Mild Pain / Temp > 101) Qty: 20 0RF
ferrous sulfate [FeroSul] 325 mg (65 mg iron) Tablet
325 mg PO BID 30 Days Qty: 60 0RF
amoxicillin-pot clavulanate 875-125 mg Tablet
1 tab PO Q12 7 Days Qty: 14 0RF
Discharge Orders:
Discharge Patient (As Directed); Ordered 09/10/23
Ordered By: Newton Mitchell
Discharge Date and Time
Discharge Date/Time: 09/10/23 14:20
[2023-09-10 11:10] VITALS: BP 106/63
== END 2023-09-10 14:20 | disposition home or self-care (01) | DRG 770 ==
LOC: 4 WEST ACU 02:12
PROVIDERS: Nurse Practitioner; Obstetrics & Gynecology; ADMITTING PHYSICIAN Hospitalist; ATTENDING PHYSICIAN Hospitalist; CONSULT PHYSICIAN Obstetrics & Gynecology; EMERGENCY PHYSICIAN Emergency Medicine; FAMILY PHYSICIAN Family Medicine
PROC: 10D17ZZ Extraction of Products of Conception, Retained, Via Natural or Artificial Opening (ICD-10-PCS; 2023-09-08)
DX: O07.4 Failed attempted termination of pregnancy without complication (principal); N12 Tubulo-interstitial nephritis, not specified as acute or chronic; D62 Acute posthemorrhagic anemia; B96.20 Unspecified Escherichia coli [E. coli] as the cause of diseases classified elsewhere; R01.1 Cardiac murmur, unspecified; Z83.3 Family history of diabetes mellitus
CPT/HCPCS: 88305; 76770; 76801; 76817; 80048; 80053; 81003; 81015; 82728; 83540; 83550; 83605; 84702; 85025; 85027; 86850; 86900; 86901; 87040; 87086; 87088; 87186; 87210; 87491; 87591; 93306; 96365; 96367; 99285